=== PATIENT | female | born 1970 | race Two or more races ===

== ENCOUNTER 2022-06-12 12:31 | Emergency (ER) | payer MEDICARE, OTHER ==
[2022-06-12 14:21] LABS: HEMOGLOBIN 12.8 gm/dl (12.3-15.3); RED BLOOD COUNT 4.45 M/UL (4.00-5.10); WHITE BLOOD COUNT 7.4 K/UL (4.5-11.0)
[2022-06-12 14:42] LABS: BUN/CREATININE RATIO 16 (0-10)
[2022-06-12] MEDS ORDERED: ASPIRIN CHEWABL81 MG PO (18:19)
== END 2022-06-12 18:32 | disposition home or self-care (01) ==
LOC: ER1 12:31
PROVIDERS: Physician Assistant Medical
DX: K59.00 Constipation, unspecified (principal); N28.0 Ischemia and infarction of kidney; I10 Essential (primary) hypertension
CPT/HCPCS: 80053; 81001; 83605; 83615; 85025; 93005; 99284